=== PATIENT | female | born 1950 | race Caucasian/White ===

== ENCOUNTER 2017-06-15 11:35 | Emergency (ER) | payer OTHER ==
[2017-06-15 11:43] VITALS: BP 146/65; PULSE 68; TEMP 98.6; BMI 28.7
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
== END 2017-06-15 12:28 | disposition home or self-care (01) ==
LOC: JERFT 11:35
DX: S29.012A Strain of muscle and tendon of back wall of thorax, initial encounter (principal); V49.49XA Driver injured in collision with other motor vehicles in traffic accident, initial encounter; Y92.488 Other paved roadways as the place of occurrence of the external cause; Y93.89 Activity, other specified; Y99.8 Other external cause status
CPT/HCPCS: 99281-25

== ENCOUNTER 2023-08-13 09:45 | Observation (INO) | payer OTHER ==
[2023-08-13 09:52] VITALS: BMI 27.4
[2023-08-13] MEDS ORDERED: ACETAMINOPHEN INJECTION 100 ML IVPB ONE (10:38)
[2023-08-13 11:55] LABS: BASO % 0.7 % (0-2.0); HEMATOCRIT 41.2 % (32.4-45.2); HEMOGLOBIN 14.1 GM/dL (10.7-15.3); LYMPH % 11.1 % (8-40); MCH 31.4 pg (25.7-33.7); MCHC 34.3 g/dl (32.0-36.0); MEAN CELL VOLUME 91.6 fl (80-96); MEAN PLT VOLUME 7.9 fl (7.5-11.1); MONO % 8.7 % (3.8-10.2); NEUT % 79.5 % (42.8-82.8); PLATELET COUNT 228 10^3/uL (134-434); RDW 13.5 % (11.6-15.6); WHITE BLOOD COUNT 5.3 K/mm3 (4.0-10.0)
[2023-08-13 11:57] LABS: INR 1.03 (0.83-1.09); PROTHROMBIN TIME (PATIENT) 11.6 SEC (9.7-13.0)
[2023-08-13 12:00] LABS: ACTIVATED PTT 30.3 SECONDS (25.2-36.5)
[2023-08-13 12:18] LABS: POTASSIUM 3.7 mmol/L (3.5-5.1)
[2023-08-13 12:21] LABS: ALBUMIN 3.7 g/dl (3.4-5.0); BLOOD UREA NITROGEN 14.6 mg/dL (7-18)
[2023-08-13 12:24] LABS: CREATININE 0.8 mg/dL (0.55-1.3)
[2023-08-13 12:25] LABS: TOT PROT 6.8 g/dl (6.4-8.2)
[2023-08-13] MEDS: SODIUM CHLORIDE 0.9% 500 ML INFUS.BAG IV ONE (13:20)
[2023-08-13] MEDS: ACETAMINOPHEN 1000 MG/100 ML BAG IVPB ONE (13:20)
[2023-08-13] MEDS: SODIUM CHLORIDE 1,000 ML IV SCH (18:57)
[2023-08-13] MEDS: ACETAMINOPHEN 325 MG TABLET (FP) PO PRN (21:30)
[2023-08-13] MEDS: ROSUVASTATIN CA 5 MG TABLET PO SCH (22:23)
[2023-08-14 07:28] LABS: BASO % 0.8 % (0-2.0); EOS % 0.7 % (0-4.5); HEMOGLOBIN 13.5 GM/dL (10.7-15.3); LYMPH % 26.4 % (8-40); MCH 31.1 pg (25.7-33.7); MCHC 33.7 g/dl (32.0-36.0); MEAN CELL VOLUME 92.2 fl (80-96); MONO % 8.6 % (3.8-10.2); NEUT % 63.5 % (42.8-82.8); PLATELET COUNT 217 10^3/uL (134-434); RBC 4.33 M/mm3 (3.60-5.2); WHITE BLOOD COUNT 3.6 K/mm3 (4.0-10.0)
[2023-08-14 07:41] LABS: POTASSIUM 3.5 mmol/L (3.5-5.1)
[2023-08-14 07:45] LABS: CALCIUM 8.6 mg/dL (8.5-10.1)
[2023-08-14 07:46] LABS: ALBUMIN 3.3 g/dl (3.4-5.0); BLOOD UREA NITROGEN 12.7 mg/dL (7-18)
[2023-08-14 07:48] LABS: CREATININE 0.8 mg/dL (0.55-1.3); PHOSPHOROUS 3.5 mg/dL (2.5-4.9)
[2023-08-14 07:49] LABS: TOT PROT 6.6 g/dl (6.4-8.2)
[2023-08-14 07:50] LABS: BILIRUBIN,TOTAL 0.5 mg/dL (0.2-1)
[2023-08-14] MEDS: ENOXAPARIN NA (PORCINE) 40 MG/0.4 ML DISP.SYRIN SQ SCH (09:37)
[2023-08-15 12:35] VITALS: RESP 18; TEMP 98
[2023-08-15 12:39] VITALS: BP 108/62; PULSE 73
== END 2023-08-15 12:52 | disposition home or self-care (01) ==
LOC: JER 09:45 → JERBED 13:30 → J4S 17:01
PROVIDERS: ADMIT Internal Medicine; ATTEND Internal Medicine
PROC: 3E033NZ Introduction of Analgesics, Hypnotics, Sedatives into Peripheral Vein, Percutaneous Approach (ICD-10-PCS; principal; 2023-08-13)
PROC: 3E023GC Introduction of Other Therapeutic Substance into Muscle, Percutaneous Approach (ICD-10-PCS; 2023-08-13)
PROC: 3E0337Z Introduction of Electrolytic and Water Balance Substance into Peripheral Vein, Percutaneous Approach (ICD-10-PCS; 2023-08-13)
DX: I10 Essential (primary) hypertension (principal); E78.5 Hyperlipidemia, unspecified; R42 Dizziness and giddiness; Z88.1 Allergy status to other antibiotic agents; Z87.891 Personal history of nicotine dependence
CPT/HCPCS: 36415; 70450-TC; 71045-TC-FY; 72125-TC; 80053; 82962; 83735; 84100; 84484; 85025; 85610; 85730; 93005; 93010; 93880-TC; 96361; 96372; 96374; 97116-GP; 97161-GP; 99285-25; G0378; J0131